=== PATIENT | female | born 1985 | race Caucasian/White ===

== ENCOUNTER 2020-06-07 06:05 | Day surgery (SDC) | payer OTHER ==
[~2020-06-07] VITALS: Ht 180.3 cm; Wt 165.0 kg
[~2020-06-07 06:05] MED LIST: IBUPROFEN800 MG PO
--- NOTE | 2020-06-07 08:56 | NUR ---
06/07/20 0856 Benji Hall OPA REMOVED AT 0846 PT RESPONDS TO STRONG JAW THRUST AND FOLLOWS COMANDS TO DEEP BREATHE. REORIETNED TO TIME AND SITUATION. SPO2 INCREASES TO GREATER THAN 90% WITH FREQUENT REMINDERS TO DEEP BREATHE. PTS CPAP OPEN AT BEDSIDE AND READY FOR USE. RT CALLED TO BEDSIDE BUT DID NOT RESPOND. SPO2 CONTINUES TO INCREASE DESPITE PT FALLING ASLEEP AND PT MAINTAINS OPEN AIRWAY. PT REPOSITIONED IN BED / BOOSTED TO TOP OF BED WHICH HELPS WITH VENTILATION
--- NOTE | 2020-06-07 09:52 | NUR ---
CALL LIGHT WITHIN REACH. PATIENT IS ASSISTED WITH SETTING UP HER CPAP MACHINE. ICED WATER IS GIVEN. PRN IS GIVEN FOR NAUSEA.
[2020-06-07] MEDS ORDERED: HYDROCODON-ACE1 EA10 PO (10:06)
--- NOTE | 2020-06-07 10:59 | NUR ---
PATIENT REMAINS WEARING HER CPAP. PUDDING IS GIVEN. HOB IS DOWN PER PATIENT'S REQUEST.
--- NOTE | 2020-06-07 11:30 | NUR ---
PATIENT PUSHES HER CALL LIGHT AND REPORTS THE URGE TO VOID. PATIENT IS UP TO THE BATHROOM WITH MY STANDBY. SHE AMBULATES WELL, VOIDS 900 ML PINK URINE AND IS BACK IN BED. HER CALL LIGHT IS WITHIN REACH.
--- NOTE | 2020-06-07 13:59 | NUR ---
PT SITTING UP IN BED, ALERT AND ORIENTED. SHE SEEMS SOMEWHAT ANXIOUS, SHE DID ENGAGE IN CONVERSATION. ALL QUESTIONS ASKED ANSWERED, PT DECLINED PRAYER AT THIS TIME. GAVE BLESSING, WILL FOLLOW NEEDED
--- NOTE | 2020-06-07 16:28 | NUR ---
FÉLIX 1330: PATIENT REPORTS HER BOYFRIEND IS ALMOST HERE AND SHE IS READY TO GO. DISCHARGE INSTRUCTIONS ARE GIVEN AND SHE VERBALIZES UNDERSTANDING. SHE IS GETTING DRESSED INDEPENDENTLY AND SHE WILL OPEN HER CURTAIN WHEN SHE IS READY TO GO. PATIENT TRANSFERS HERSELF TO THE WHEELCHAIR AND THEN TO PERSONAL VEHICLE AND SHE DOES WELL WITH THAT.
--- NOTE | 2020-06-10 11:39 | OR ---
[facility] [address] [place], [place] [address] Signed DATE OF OPERATION: 06/07/2020 SURGEON: Adolph Grimaldo MD PREOPERATIVE DIAGNOSES: Pelvic pain, abnormal uterine bleeding and obesity. POSTOPERATIVE DIAGNOSES: Pelvic pain, abnormal uterine bleeding and obesity. PROCEDURE: Diagnostic laparoscopy and hysteroscopy with D and C. BULL WHEEL WORKER: Dr. Grover Lazcano and Dr. Mery Greenwood. ANESTHESIA: General. ESTIMATED BLOOD LOSS: 10 mL. SPECIMEN: Uterine curettings. DRAINS: None. FINDINGS: Normal vagina. Normal size and shape of the cervix with no lesions noted. Uterine cavity was normal in size and shape with normal-appearing endometrium throughout. Both ostia were identified. No polyps or fibroids were seen. The outer surface of the uterus also appeared normal with no adhesions. The anterior cul-de-sac was free of any endometriosis or adhesions. Posterior cul-de-sac was free of any endometriosis or adhesions. The left tube was normal in length and normal-appearing fimbriated end. No adhesions. The left ovary is normal size and shape without any evidence of endometriosis or adhesions. The left pelvic sidewall also free of any endometriosis. Right tube was normal in length and normal-appearing fimbriated end and no adhesions. Right ovary is normal size and shape without any evidence of endometriosis or adhesions. The right pelvic sidewall was also free of any endometriosis. The rest of the pelvis Electronically Signed By: ADOLPH GRIMALDO MD 06/10/20 1139 PATIENT NAME: BOB GRANGER OPERATIVE REPORT DATE OF : 87 REPORT #: [id number] PHYSICIAN: ADOLPH GRIMALDO MD PCP: ANH FIELD [facility] REPORT IS CONFIDENTIAL AND NOT TO BE RELEASED WITHOUT AUTHORIZATION [facility] [address] [place], [place] [address] Signed was free of any masses or adhesions. DESCRIPTION OF PROCEDURE: The patient was brought to the operating room, placed in supine position. After adequate general anesthesia was obtained, the patient was placed in dorsal lithotomy position, then prepped and draped in usual sterile fashion. Figueredo catheter was placed in the bladder and a weighted speculum was placed in the vagina. The anterior lip of the cervix was grasped with an Allis clamp and the cervix serially dilated up to a #7 Liberian dilator. The hysteroscope with video attachment was then placed in the external os of the cervix and entered through the cervical canal into the uterus under direct visualization. Sterile water was used as distending medium. The above findings were noted. The MyoSure Lite was then placed through the hysteroscope and sample of the endometrium in 360 degree fashion was obtained in the upper and lower portion of the cavity. The hysteroscope was removed. Good hemostasis was noted, so a Hulka clamp was carefully introduced through the cervix into the uterine cavity and attached to the anterior lip of the cervix. The Allis clamp and weighted speculum were removed. A small infraumbilical skin incision was made after injecting the area with 0.25% plain Marcaine. A direct entry 5 mm trocar and sleeve were then placed in the umbilical incision and the gas attached to the sleeve and the laparoscope placed in the port. The trocar was slowly introduced through the abdominal wall under direct visualization when the tip of the trocar entered the pelvis, gas began flowing into the abdomen, the trocar and sleeve inserted a little bit further and then the trocar removed and the laparoscope placed through the sleeve into the abdomen. The omentum just below the area of entry was examined, noted to have no blood, no tears. The carbon dioxide was then used to inflate the abdomen further. The patient was placed in Trendelenburg position. A small skin incision was made on the right side just below the level of the umbilicus and approximately 10 cm lateral to the midline. The area was attempted to transilluminate, but because the patient's size, this did not help. The area was injected with 0.25% plain Marcaine and a small skin incision was made with a scalpel. A bladed 5-mm trocar and sleeve entered the abdomen under direct visualization. The trocar was removed and the blunt grasper inserted and the above findings were noted. The pelvis was carefully inspected. No reason for the pain found, no endometriosis seen so, it was decided at this time to stop the procedure. All instruments were removed. The gas allowed to escape and the final sleeves were removed. The two skin incisions were closed using subcuticular stitches of 4-0 Vicryl. The Figueredo catheter was removed and a Hulka clamp removed from the cervix. The patient tolerated the procedure well, went to the recovery room in good condition. The sponge, needle and instrument count were correct at the end of the procedure. Uterine curettings again sent to Pathology for identification. Electronically Signed By: ADOLPH GRIMALDO MD 06/10/20 1139 PATIENT NAME: BOB GRANGER OPERATIVE REPORT DATE OF : 87 REPORT #: [id number] PHYSICIAN: ADOLPH GRIMALDO MD PCP: ANH FIELD [facility] REPORT IS CONFIDENTIAL AND NOT TO BE RELEASED WITHOUT AUTHORIZATION [facility] [address] [place], [place] [address] Signed Adolph Grimaldo MD MJB/MODL /[id number] cc: CHRISTINA Farfan Copies: ANH FIELD ~ Electronically Signed By: ADOLPH GRIMALDO MD 06/10/20 1139 PATIENT NAME: BOB GRANGER FERDINAND OPERATIVE REPORT DATE OF : 87 REPORT #: [id number] PHYSICIAN: ADOLPH GRIMALDO MD PCP: ANH FIELD REPORT IS CONFIDENTIAL AND NOT TO BE RELEASED WITHOUT AUTHORIZATION
--- NOTE | 2020-06-12 10:28 | PATH ---
[facility] [address] [place], [place] [address] Signed SPECIMEN(S): A ENDOMETRIAL CURETTINGS SPECIMEN SOURCE: A. ENDOMETRIAL CURETTINGS CLINICAL HISTORY: Pelvic pain, abnormal uterine bleeding. FINAL PATHOLOGIC DIAGNOSIS: Endometrium, curettage: - Weakly disordered proliferative endometrium with stromal breakdown. - Fragments of benign endometrial polyp(s). - Fragments of myometrial smooth muscle with no histopathologic abnormality. - Negative for hyperplasia or malignancy. NAL:cml:C2NR MICROSCOPIC EXAMINATION: Histologic sections of all submitted blocks are examined by light microscopy. These findings, together with the gross examination, support the pathologic diagnosis. GROSS DESCRIPTION: The specimen, labeled "CA, endometrial curettings," is received in formalin and consists of irregular shaped membranous and hemorrhagic tissue fragment that aggregate measure 3.0 x 2.2 x 0.3 cm. The specimen is entirely submitted in cassette (A1). JS (under the direct supervision of a pathologist) The Gross Description was prepared using a voice recognition system. The report was reviewed for accuracy; however, sound-alike word errors, addition and/or deletions may occur. If there is any question about this report, please contact Client Services. PERFORMING LABORATORY: The technical component was performed by [facility], [address] [place] [id number] (Correctional Lieutenant: Deepika Wolf MD; CLIA# [id number]). [facility], [address] [address] (CLIA# [id number]). Diagnostician: Angelica Eli MD Pathologist PATIENT NAME: BOB GRANGER PATHOLOGY DATE OF : 87 REPORT #: [id number] PHYSICIAN: [facility] PCP: ANH FIELD [facility] REPORT IS CONFIDENTIAL AND NOT TO BE RELEASED WITHOUT AUTHORIZATION [address] [address] Signed Electronically Signed 06/11/2020 Copies: ~ PATIENT NAME: BOB GRANGER FERDINAND PATHOLOGY DATE OF : 87 REPORT #: [id number] PHYSICIAN: [facility] PCP: ANH FIELD [facility] REPORT IS CONFIDENTIAL AND NOT TO BE RELEASED WITHOUT AUTHORIZATION
== END 2020-06-07 13:40 | disposition home or self-care (01) ==
LOC: DS 06:05
PROVIDERS: ATTEND General Practice
PROC: 0UT9FZZ Resection of Uterus, Via Natural or Artificial Opening With Percutaneous Endoscopic Assistance (ICD-10-PCS; principal; 2020-06-07 06:45)
DX: N93.9 Abnormal uterine and vaginal bleeding, unspecified (principal); R10.2 Pelvic and perineal pain; E66.9 Obesity, unspecified; Z68.43 Body mass index [BMI] 50.0-59.9, adult
CPT/HCPCS: 00952; J1100; J1885; J2001; J2250; J2405; J2550; J2704; J3010; J7121